=== PATIENT | male | born 1960 | race Caucasian/White ===

== ENCOUNTER 2016-09-10 07:15 | Inpatient (IN) | payer OTHER ==
[2016-09-12] MEDS ORDERED: DEXAMETHASONE 10 MG/ML VIAL IVP ONE (07:00)
[2016-09-12] MEDS ORDERED: ceFAZolin 2 GM/DEXTROSE 100 ML IV ONE (07:00)
[2016-09-12] MEDS ORDERED: fentaNYL 250 MCG/5 ML INJ ONE (09:15)
[2016-09-12] MEDS ORDERED: PROPOFOL/EMULSION 500 MG/50 ML BOTTLE IV ONE ×2 (09:15→11:25)
[2016-09-12] MEDS ORDERED: LIDOCAINE 1% 5 ML SDV ONE (10:02)
[2016-09-12] MEDS ORDERED: CEFAZOLIN 2 GM/DEXTROSE/100 ML BAG IV ONE (10:18)
[2016-09-12] MEDS ORDERED: DEXAMETHASONE 10 MG/ML VIAL ONE (10:18)
[2016-09-12 10:59] LABS: % IMMATURE GRANULYOCYTES 0.5 % (0.0-1.1); ABSOLUTE IMMATURE GRANULOCYTES 0.04 10^3/uL (0.00-0.10); ADD DIFF? NO; ADD MORPH? NO; ADD SCAN? NO; ATYPICAL LYMPHOCYTE FLAG 0 (0-99); FRAGMENT RBC FLAG 0 (0-99); HEMATOCRIT 52.9 % (40.0-51.0); HEMOGLOBIN 17.6 g/dL (13.7-17.5); LEFT SHIFT FLG 0 (0-99); LIPEMIA HEMOLYSIS FLAG 80 (0-99); MEAN CELL HEMOGLOBIN 30.1 pg (27.9-34.1); MEAN CELL HEMOGLOBIN CONCENTR. 33.3 g/dL (32.4-36.7); MEAN CELL VOLUME 90.4 fL (81.5-99.8); MEAN PLATELET VOLUME 9.3 fL (8.7-11.7); PLATELET CLUMPS FLAG 0 (0-99); PLATELET COUNT 166 10^3/uL (150-400); RED BLOOD CELL COUNT 5.85 10^6/uL (4.40-6.38); RED CELL DISTRIBUTION WIDTH 15.6 % (11.5-15.2)
[2016-09-12] MEDS ORDERED: BACITRACIN 50,000 UNITS/10 ML SYR IRR ONE ×2 (11:08→13:39)
[2016-09-12] MEDS ORDERED: BUPIVACAINE/EPI 0.25% 30 ML SDV ONE (11:08)
[2016-09-12] MEDS ORDERED: BUPIVACAINE 0.25% 30 ML SDV ONE (11:08)
[2016-09-12] MEDS ORDERED: THROMBIN (RECOMBINANT) 5,000 UNIT VIAL TP ONE ×2 (11:08→13:51)
[2016-09-12] MEDS ORDERED: CHLORHEXIDINE GLUC HIBICLENS 118 ML BTL TP ONE (11:12)
[2016-09-12] MEDS ORDERED: MIDAZOLAM 2 MG/2 ML VIAL ONE (11:16)
[2016-09-12 11:20] LABS: ANION GAP 12 mEq/L (8-16); CALCIUM 9.3 mg/dL (8.5-10.4); CARBON DIOXIDE 28 mEq/l (22-31); CHLORIDE 103 mEq/L (97-110); CREATININE 1.1 mg/dL (0.7-1.3); GLOMERULAR FILTRATION RATE > 60; GLUCOSE 105 mg/dL (70-100); POTASSIUM 4.3 mEq/L (3.5-5.2); SODIUM 143 mEq/L (134-144)
[2016-09-12] MEDS ORDERED: ROCURONIUM 50 MG/5 ML VIAL ONE (11:24)
[2016-09-12] MEDS ORDERED: ONDANSETRON 4 MG/2 ML VIAL ONE (11:24)
[2016-09-12] MEDS ORDERED: SUCCINYLCHOLINE CHLORIDE*ANESTHESIA ONLY*200 MG/10 ML SYR IVP ONE (11:24)
[2016-09-12] MEDS ORDERED: DIAZEPAM 10 MG/2 ML SYR ONE (12:51)
[2016-09-12 13:31] LABS: BICARBONATE 24 mEq/L (22-26); HEMOGLOBIN ABG 16.9 gm/dL (14.5-17.3); IONIZED CALCIUM 1.19 MMOL/L (1.12-1.30); MEASURED OXYGEN SATURATION 100 % (92-95); PCO2 43 mmHg (34-38); PO2 365 mmHg (65-75); SODIUM ABG 139 mEq/L (137-146); TCO2 25 mEq/L (23-27)
[2016-09-12] MEDS ORDERED: PHENYLEPHRINE HCL 100 MCG/ML SYR ONE ×2 (13:52)
[2016-09-12] MEDS ORDERED: epHEDrine SULFATE 10 MG/ML SYR ONE ×2 (13:52)
[2016-09-12] MEDS ORDERED: SKIN ADHESIVE (DERMABOND) 1 EACH TP ONE (14:14)
[2016-09-12] MEDS ORDERED: METHOCARBAMOL 750 MG TAB PO PRN (15:02)
[2016-09-12] MEDS ORDERED: LACTULOSE 20 GM/30 ML UDCUP PO PRN (15:02)
[2016-09-12] MEDS ORDERED: BISACODYL 10 MG SUPP PR PRN (15:02)
[2016-09-12] MEDS ORDERED: diphenhydrAMINE 25 MG CAP PO PRN (15:02)
[2016-09-12] MEDS ORDERED: HYDROmorphONE/DILAUDID 1 MG/ML SYR IVP PRN (15:02)
[2016-09-12] MEDS ORDERED: ONDANSETRON 4 MG/2 ML VIAL IVP PRN (15:02)
[2016-09-12] MEDS ORDERED: ONDANSETRON DISINTEGRATING 4 MG TAB PO PRN (15:02)
[2016-09-12] MEDS ORDERED: HYDROCODONE/APAP 10/325 TAB PO PRN (15:02)
[2016-09-12] MEDS ORDERED: DIAZEPAM 10 MG/2 ML SYR IVP PRN (15:02)
[2016-09-12] MEDS ORDERED: DIAZEPAM 5 MG TAB PO PRN (15:02)
[2016-09-12] MEDS ORDERED: ACETAMINOPHEN 325 MG TAB PO PRN (15:02)
[2016-09-12] MEDS ORDERED: MAGNESIUM HYDROXIDE 30 ML UDCUP PO PRN (15:02)
--- NOTE | 2016-09-12 15:12 | POSTOPPROG ---
Post Op Note Date of Operation: 09/12/16 Surgeon: Deangelo Preston Rip Tailer: Jaime Anesthesiologist: Laxmi Anesthesia: GET(General Endotracheal) Pre-op Diagnosis: L2/3 disc herniation, L1/2 intradural lesion Post-op Diagnosis: same Indication: leg pain, weakness Procedure: L1/2 laminectomy for resection of intradural lesion, right L2/3 microdisc Findings: intradural lesion, disc herniation Inf/Abcess present in the surg proc area at time of surgery?: No EBL: 50-100 Complications: None
--- NOTE | 2016-09-12 15:13 | DX ---
Fluoroscopy Provided for Intraoperative Localization at 12:04 p.m. Indication: Spine surgery. Fluoroscopy time: 20.3 seconds. Dose: 17.13 mGy. Technique: A single intraoperative crosstable lateral spot view was obtained. Findings: Soft tissue spreaders and 2 radiopaque devices are posterior to 2 vertebral bodies. Impression: Fluoroscopy provided for intraoperative localization.
--- NOTE | 2016-09-12 15:15 | SOAPPROG ---
STAN Progress Note Assessment/Plan: Assessment: 55 yo M sp L1-2 laminectomy with resection of L1/2 intradural lesion and right L2/3 microdiscectomy Plan: stable HOB flat with bedrest until tomorrow am pathology pending please call with neuro changes patient seen by Dr Hedrick in pacu 09/12/16 15:12 Subjective: + back pain, no leg pain Objective: Laboratory Results 09/12/16 10:45 09/12/16 10:45 somnolent PERRL, no facial droop MERON x 4 + light touch ICD10 Worksheet Patient Problems: Problems Problem Status Diagnosed Intervertebral disc disorder with radiculopathy of lumbosacral region Acute - ICD10 Problem Qualifiers (1) Intervertebral disc disorder with radiculopathy of lumbosacral region
--- NOTE | 2016-09-12 16:12 | GOP ---
[f rep st] OPERATIVE REPORT DATE OF OPERATION: 09/12/2016 SURGEON: Deangelo Preston MD PICK UP TRUCK DRIVER: Dandy Sandoval PA-C. ANESTHESIA: General endotracheal. PREOPERATIVE DIAGNOSIS: 1. L1-2 spinal lesion/tumor. 2. L2-3 large free fragment disk herniation. 3. Progressive bilateral lower extremity weakness and gait instability/progressive loss of neurologi c function. 4. 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 POSTOPERATIVE DIAGNOSIS: 1. L1-2 spinal lesion/tumor. 2. L2-3 large free fragment disk herniation. 3. Progressive bilateral lower extremity weakness and gait instability/progressive loss of neurologi c function. 4. 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 PROCEDURE PERFORMED: L1-2 laminectomies for open biopsy/resection of intradural extramedullary tumor , right L2-3 posterior hemilaminectomy medial facetectomy, foraminotomy, and diskectomy. Use of intr aoperative microscopy and fluoroscopy. Intraoperative neurophysiologic testing and nerve stimulation . FINDINGS: ESTIMATED BLOOD LOSS: 500 cc. INDICATIONS: The patient is a 55-year-old male with a history of teratoma in his brain, treated with radiation 25 years ago. He presented to me last week with a progressive loss of function in his low er extremities, and was found to have what appeared to be a tumor at the L1-2 area, as well as a very large disk herniation at the L2-3 level. 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 The patient and his case were prese nted at tumor board with all the [facility] neurosurgeons present, as well as multiple oncologists, radiatio n oncologists, and radiologists. It was the general consensus to leave the thoracic lesions alone an d perform a diskectomy as well as open biopsy/resection of the lumbar tumor, obtain CSF, and then go from there, depending on the findings and ultimate diagnosis. DESCRIPTION OF PROCEDURE: After informed consent was obtained, the patient was taken to the operatin g room and placed in the prone position on the Albaro frame. The lumbosacral area was prepped and dr aped in a sterile fashion after fluoroscopic localization of the correct levels. The subcutaneous an d intramuscular tissues were infiltrated with local anesthesia. A midline linear incision was then c reated from approximately L1 through L3. This was carried down to the fascial layer, which was incis ed using monopolar electrocautery and carried to the subperiosteal plane along the spinous processes and lamina bilaterally. After re-verification of the correct levels, a right-sided L2-3 posterior he milaminectomy and medial facetectomy was performed with elevation of the ligamentum flavum. Under hi gh-power microscopy, a thorough exploration was performed of the epidural space and disk space at L2- 3 and eventually a very large free fragment disk herniation was identified that was very central and had to be teased out with a nerve hook and reverse angle curettes, among other things. Difficulty ac cessing the medial lesion indented into the dura required the medial facetectomy. After several larg e free fragments were removed, the area was copiously irrigated with antibiotic irrigation. Meticulo us hemostasis was achieved. A laminectomy was then performed at the L1-2 level, and intraoperative u ltrasound utilized to verify the location of the intradural extramedullary lesion. The dura was then opened in a linear fashion and tacked back with 4-0 Nurolon sutures. The lesion was identified and noted to be stuck to one of the nerve roots. Intraoperative neurophysiologic testing was performed t o identify any function of the nerve root. The nerves to the iliopsoas and quadriceps were identifie d, and the nerve the tumor was stuck to did not elicit any motor function, but nonetheless, the tumor was removed in its entirety with a gross total resection, sparing the nerve. It was fairly stuck an d any residual tumor along the edge of the nerve was carefully bipolared using the electrocautery. F ollowing this, the intradural space was copiously irrigated, and the dura was then closed in a watert ight fashion using a running 5-0 Prolene suture, followed by DuraGen overlying this. After meticulou s hemostasis was achieved and copious irrigation with antibiotic fluid, the wound was then closed in a layered fashion using interrupted using running Vicryl sutures, followed by interrupted Vicryl sutu res in the subcutaneous tissues, followed by Dermabond on the skin. COMPLICATIONS: None. DISPOSITION: The patient is currently in the process of being repositioned for extubation. /[id number]/MODL
[2016-09-12] MEDS: POLYETHYLENE GLYCOL 3350 17 GM PKT PO SCH ×2 (17:46→21:20)
[2016-09-12] MEDS: NS W/ 20 KCl/L 1,000 ML IV SCH (18:01)
[2016-09-12] MEDS: FAMOTIDINE 20 MG/NACL 50 ML IV SCH (21:19)
[2016-09-12] MEDS: SENNOSIDES/DOCUSATE SODIUM TAB PO SCH (21:20)
[2016-09-13] MEDS: OXYCODONE/APAP 5/325 TAB PO PRN ×4 (00:39→15:42)
[2016-09-13] MEDS: NS W/ 20 KCl/L 1,000 ML IV SCH (04:05)
[2016-09-13] MEDS: LEVOTHYROXINE 175 MCG TAB PO SCH (04:36)
[2016-09-13 05:13] LABS: % IMMATURE GRANULYOCYTES 0.5 % (0.0-1.1); ABSOLUTE IMMATURE GRANULOCYTES 0.07 10^3/uL (0.00-0.10); ADD DIFF? NO; ADD MORPH? NO; ADD SCAN? NO; ATYPICAL LYMPHOCYTE FLAG 0 (0-99); FRAGMENT RBC FLAG 0 (0-99); HEMATOCRIT 43.2 % (40.0-51.0); HEMOGLOBIN 14.3 g/dL (13.7-17.5); LEFT SHIFT FLG 0 (0-99); LIPEMIA HEMOLYSIS FLAG 80 (0-99); MEAN CELL HEMOGLOBIN 29.9 pg (27.9-34.1); MEAN CELL HEMOGLOBIN CONCENTR. 33.1 g/dL (32.4-36.7); MEAN CELL VOLUME 90.4 fL (81.5-99.8); MEAN PLATELET VOLUME 9.8 fL (8.7-11.7); PLATELET CLUMPS FLAG 0 (0-99); PLATELET COUNT 171 10^3/uL (150-400); RED BLOOD CELL COUNT 4.78 10^6/uL (4.40-6.38); RED CELL DISTRIBUTION WIDTH 15.2 % (11.5-15.2)
[2016-09-13 05:15] LABS: ANION GAP 9 mEq/L (8-16); CALCIUM 8.3 mg/dL (8.5-10.4); CARBON DIOXIDE 25 mEq/l (22-31); CHLORIDE 105 mEq/L (97-110); GLOMERULAR FILTRATION RATE > 60; GLUCOSE 132 mg/dL (70-100); POTASSIUM 4.6 mEq/L (3.5-5.2); SODIUM 139 mEq/L (134-144)
--- NOTE | 2016-09-13 08:41 | NEUSURGPN ---
Assessment/Plan: 55 y/o male s/p right L2/3 microdisc with resection of L1/2 intradural lesion -Final path pending -Okay to raise HOB 1 degrees an hour starting now -DVT prophx: TEDs, SCDs, Lovenox -Optimize pain management -Discussed with Dr. Hedrick -Please notify NS with any change in neuro/motor exam Subjective: Denies any headache, dizziness, denies any new leg pain, numbness, tingling or weakness. Objective: NAD A&Ox3 MAEx4 5/5 and equal in BUE and BLE. Incisional dressing flat, c/d/i Catheter Insertion Date: 09/12/16 - Physician Discussed Patient with DrDarryl: [facility] Physical Exam - Vitals, I&O, Labs I and O 09/12/16 09/13/16 09/14/16 05:59 05:59 05:59 Intake Total 5575 Output Total 3750 Balance 1825 Weight 104.3 kg Intake: Oral (ml) 200 IV Intake (ml) 4325 IV Infused (ml) 1050 ceFAZolin 1 GM/DEXTROSE 100 50 ml @ 200 mls/hr IV Q8H SARAH Rx#:[id number] Famotidine 20 mg/NaCl 50 50 ml @ 200 mls/hr IV Q12HRS SARAH Rx#:[id number] NS W/ 20 KCl/L 1,000 ml @ 900 75 mls/hr IV CONT SARAH Rx #:[id number] Output: Urine (ml) 3450 Catheter 3450 Estimated Blood Loss (ml) 300 Other: Number of Voids Catheter 1 Vital Signs Temp Pulse Resp BP Pulse Ox 36.9 C 99 18 113/69 96 09/13/16 07:44 09/13/16 07:44 09/13/16 07:44 09/13/16 07:44 09/13/16 07:44 Laboratory Results 09/13/16 04:26 09/13/16 04:26 ICD10 Worksheet Patient Problems: Problems Problem Status Diagnosed Intervertebral disc disorder with radiculopathy of lumbosacral region Acute
[2016-09-13] MEDS: SENNOSIDES/DOCUSATE SODIUM TAB PO SCH (09:05)
[2016-09-13] MEDS: POLYETHYLENE GLYCOL 3350 17 GM PKT PO SCH ×2 (09:06→16:45)
[2016-09-13] MEDS: FAMOTIDINE 20 MG/NACL 50 ML IV SCH (09:06)
[2016-09-13] MEDS: ENOXAPARIN 40 MG/0.4 ML SYR SC SCH (09:06)
[2016-09-14 00:19] VITALS: RESP 18
[2016-09-14] MEDS: SENNOSIDES/DOCUSATE SODIUM TAB PO SCH ×2 (00:41→08:31)
[2016-09-14] MEDS: OXYCODONE/APAP 5/325 TAB PO PRN ×2 (00:42→14:50)
[2016-09-14] MEDS: POLYETHYLENE GLYCOL 3350 17 GM PKT PO SCH ×2 (00:43→08:32)
[2016-09-14] MEDS: FAMOTIDINE 20 MG/NACL 50 ML IV SCH (01:19)
[2016-09-14] MEDS: LEVOTHYROXINE 175 MCG TAB PO SCH (05:21)
[2016-09-14] MEDS ORDERED: TAMSULOSIN HCL 0.4 MG CAP PO ONE (06:30)
[2016-09-14 07:20] VITALS: BP 128/82; PULSE 89; TEMP 98.5; O2SAT 90
[2016-09-14] MEDS: ENOXAPARIN 40 MG/0.4 ML SYR SC SCH (08:24)
[2016-09-14] MEDS ORDERED: FAMOTIDINE 20 MG TAB PO SCH (09:00)
--- NOTE | 2016-09-14 14:56 | NEUSURGPN ---
Assessment/Plan: 55 y/o male s/p right L2/3 microdisc with resection of L1/2 intradural lesion -Final path pending -Okay for OOB as tolerated -Urinary retention. Started flomax, go home with montelongo and see urology as outpatient -DVT prophx: TEDs, SCDs, Lovenox -Optimize pain management -Discussed with Dr. Hedrick -Please notify NS with any change in neuro/motor exam Subjective: Pt resting in bed, pain well managed. Objective: AAOx3 NAD VSS MAEx4 Motor 5/5 BLE Incision cdi +LT Urinary Catheter in Place: Yes Urinary Catheter Indication: Other (Use Comment) (urinary retention) Catheter Insertion Date: 09/14/16 - Physician Discussed Patient with : [facility] Neuro[facility] Physical Exam - Vitals, I&O, Labs I and O 09/13/16 09/14/16 09/15/16 05:59 05:59 05:59 Intake Total 5575 1400 Output Total 3750 2600 1400 Balance 1825 -1200 -1400 Weight 104.3 kg Intake: Oral (ml) 200 600 IV Intake (ml) 4325 IV Infused (ml) 1050 800 ceFAZolin 1 GM/DEXTROSE 100 50 ml @ 200 mls/hr IV Q8H SARAH Rx#:[id number] Famotidine 20 mg/NaCl 50 50 50 ml @ 200 mls/hr IV Q12HRS SARAH Rx#:[id number] NS W/ 20 KCl/L 1,000 ml @ 900 750 75 mls/hr IV CONT SARAH Rx #:[id number] Output: Urine (ml) 3450 2600 1400 Catheter 3450 2400 1400 Urinal 200 Estimated Blood Loss (ml) 300 Other: Output Comment Catheter Straight cathed Number of Voids Catheter 1 Bladder Scan Volume (ml) Catheter 900 Post Void Residual Scan Volume (ml) Catheter 75 Vital Signs Temp Pulse Resp BP Pulse Ox 36.9 C 89 18 128/82 H 90 L 09/14/16 07:19 09/14/16 07:19 09/14/16 07:19 09/14/16 07:19 09/14/16 07:19 Laboratory Results 09/13/16 04:26 09/13/16 04:26 ICD10 Worksheet Patient Problems: Problems Problem Status Diagnosed Intervertebral disc disorder with radiculopathy of lumbosacral region Acute
--- NOTE | 2016-09-18 14:45 | GDS ---
[f rep st] DISCHARGE SUMMARY ADMISSION DIAGNOSIS: 1. L2-3 disk herniation. 2. L1-2 intradural lesion. DISCHARGE DIAGNOSIS: 1. Status post L1-2 laminectomy for resection of intradural lesion. 2. Status post right L2-3 microdiskectomy. HISTORY OF PRESENT ILLNESS: Please see admission history and physical. HOSPITAL COURSE: The patient is a 55-year-old male with a history of a previous teratoma. He presen altagracia with leg pain and left leg heaviness. Imaging studies demonstrated a thoracic arachnoid cyst, an intradural L1-2 lesion, and a broad-based L2-3 disk herniation. He also underwent further workup wh ich demonstrated multiple brain lesions. His case was discussed at Tumor Board and it was recommende d that he proceed with an L2-3 microdiskectomy, as well as resection/biopsy of the L1-2 intradural le [place], with sampling of his spinal fluid. He was taken to the operating room on 09/12/2016, where he underwent an L1-2 laminectomy for resection of his intradural lesion, sampling of cerebrospinal fluid , as well as a right L2-3 microdiskectomy. There were no intraoperative complications. He was admit altagracia to the floor for observation. Final pathology reports indicate that the intradural L2-3 lesion w as a malignant, biphasic, pleomorphic neoplasm consistent with carcinosarcoma. The patient was ambul ating on his own and tolerating a regular diet. DISPOSITION: He was discharged home in stable condition on 09/14/2016. FOLLOW-UP CARE PLAN: 1. The patient was discharged with postoperative instructions. 2. It was recommended he follow up with his oncologist as well as Neurosurgery in approximately 1-2 weeks for further treatment options. /[id number]/MODL
== END 2016-09-14 15:42 | disposition home or self-care (01) | DRG 29 ==
LOC: F3N 09-12 09:40
PROVIDERS: ADMIT Neurological Surgery; ATTEND Neurological Surgery
PROC: 0SB20ZZ Excision of Lumbar Vertebral Disc, Open Approach (ICD-10-PCS; principal; 2016-09-12 10:45)
PROC: 4A1004G Monitoring of Central Nervous Electrical Activity, Intraoperative, Open Approach (ICD-10-PCS; principal; 2016-09-12 10:45)
PROC: 00BY0ZX Excision of Lumbar Spinal Cord, Open Approach, Diagnostic (ICD-10-PCS; principal; 2016-09-12 10:45)
DX: C72.0 Malignant neoplasm of spinal cord (principal); M51.06 Intervertebral disc disorders with myelopathy, lumbar region; G47.33 Obstructive sleep apnea (adult) (pediatric); E03.9 Hypothyroidism, unspecified; D45 Polycythemia vera; N18.9 Chronic kidney disease, unspecified; R33.9 Retention of urine, unspecified; Z86.011 Personal history of benign neoplasm of the brain
CPT/HCPCS: 97161-GP; 97165-GO; J0330; J0690; J1650; J2250; J2370; J2405; J2704; J3010